=== PATIENT | male | born 1965 | race Caucasian/White ===

== ENCOUNTER 2020-09-16 11:01 | Emergency (ER) | payer OTHER ==
[~2020-09-16] VITALS: Ht 177.8 cm; Wt 90.7 kg
[2020-09-16] MEDS ORDERED: ENALAPRIL MALEA10 MG PO (11:49)
== END 2020-09-16 16:41 | disposition home or self-care (01) ==
LOC: ER 11:01
DX: A90 Dengue fever [classical dengue] (principal); Z03.818 Encounter for observation for suspected exposure to other biological agents ruled out

== ENCOUNTER 2020-10-03 18:24 | Emergency (ER) | payer OTHER ==
[~2020-10-03] VITALS: Ht 177.8 cm; Wt 95.3 kg
[~2020-10-03 18:24] MED LIST: ENALAPRIL MALEA10 MG PO
[2020-10-04] MEDS ORDERED: KETO10TA2 PO (10:17)
== END 2020-10-04 10:24 | disposition home or self-care (01) ==
LOC: ER 18:24
DX: M77.8 Other enthesopathies, not elsewhere classified (principal); R60.0 Localized edema